=== PATIENT | female | born 1970 | race Caucasian/White ===

== ENCOUNTER 2017-08-13 20:58 | Emergency (ER) | payer BC ==
[~2017-08-13] VITALS: Ht 170.2 cm; Wt 108.8 kg
[2017-08-13 22:13] LABS: HEMATOCRIT 42.2 % (36.0-46.0); HEMOGLOBIN 14.3 G/DL (11.9-15.5); MCH 31.2 PG (29.0-34.0); MCHC 33.9 G/DL (30.0-36.0); MCV 92.1 FL (83-99); PLATELET COUNT 295 K/uL (156-360); RBC DIS.WIDTH-CV 12.9 % (11.8-14.6); RBC DIS.WIDTH-SD 43.1 % (39-53); RED BLOOD COUNT 4.58 M/uL (3.80-5.20); WHITE BLOOD COUNT 9.2 K/uL (4.1-10.2)
[2017-08-13 22:28] LABS: ALBUMIN 4.2 g/dL (3.2-4.8); CHLORIDE 108 mEq/L (99-109); POTASSIUM 4.2 mEq/L (3.7-5.4); SODIUM 144 mEq/L (136-147)
[2017-08-13 22:30] LABS: GLUCOSE 107 mg/dL (70-99); TOTAL PROTEIN 7.1 g/dL (6.4-8.3)
[2017-08-13 22:32] LABS: TOTAL BILIRUBIN 0.3 mg/dL (0.0-1.0)
[2017-08-13 22:34] LABS: ALKALINE PHOSPHATASE 90 IU/L (3-129); CREATININE 0.8 mg/dL (0.6-1.3); GFR ESTIMATE (CALCULATED) > 59 mL/min/
[2017-08-13 22:35] LABS: TROP-I INTERPRETATION NEGATIVE; TROPONIN-I < 0.01 ng/mL (0.0-0.30); UREA NITROGEN (BUN) 12 mg/dL (9-23)
[2017-08-13 22:36] LABS: AST (GOT) 20 IU/L (2-34); QUANTITATIVE HCG < 4.0 MIU/ML
[2017-08-13 22:37] LABS: ALT (GPT) 24 IU/L (3-49); LIPASE 13 U/L (1.0-51.0)
[2017-08-14] MEDS ORDERED: WELLBUTRIN XL300 MG PO (00:23)
[2017-08-14] MEDS ORDERED: CARDIZEM30 MG PO (00:23)
[2017-08-14] MEDS ORDERED: FLEXERIL5 MG PO (00:23)
[2017-08-14] MEDS ORDERED: ADULT ASPIRIN81 MG PO (00:24)
[2017-08-14] MEDS ORDERED: OMEPRAZOLE40 M1 PO (00:24)
[2017-08-14] MEDS ORDERED: FISH OIL 1,0001 EAC7 PO (00:24)
[2017-08-14] MEDS ORDERED: [UNRECOGNIZED DRUG - OTHER] PO (00:24)
[2017-08-14] MEDS ORDERED: B COMPLEX #11 EACH PO (00:24)
[2017-08-14 03:17] VITALS: BP 148/73
[2017-08-14 05:10] LABS: HEMATOCRIT 44.2 % (36.0-46.0); HEMOGLOBIN 14.7 G/DL (11.9-15.5); MCH 30.2 PG (29.0-34.0); MCHC 33.3 G/DL (30.0-36.0); MCV 90.8 FL (83-99); PLATELET COUNT 309 K/uL (156-360); RBC DIS.WIDTH-CV 12.7 % (11.8-14.6); RBC DIS.WIDTH-SD 41.8 % (39-53); RED BLOOD COUNT 4.87 M/uL (3.80-5.20); WHITE BLOOD COUNT 11.1 K/uL (4.1-10.2)
[2017-08-14 05:24] LABS: TROP-I INTERPRETATION NEGATIVE; TROPONIN-I < 0.01 ng/mL (0.0-0.30)
[2017-08-14 05:31] LABS: ALBUMIN 4.2 G/DL (3.2-4.8); ALKALINE PHOSPHATASE 71 IU/L (3-129); ALT (GPT) 23 IU/L (3-49); AST (GOT) 19 IU/L (2-34); CHLORIDE 106 MEQ/L (99-109); CREATININE 0.7 MG/DL (0.6-1.3); GFR ESTIMATE (CALCULATED) > 59 mL/min/; POTASSIUM 3.7 MEQ/L (3.7-5.4); SODIUM 140 MEQ/L (136-147); TOTAL BILIRUBIN 0.3 MG/DL (0.0-1.0); TOTAL PROTEIN 7.3 G/DL (6.4-8.3); UREA NITROGEN (BUN) 11 mg/dL (9-23)
[2017-08-14 05:34] LABS: GLUCOSE 173 mg/dL (70-99)
[2017-08-14 07:37] VITALS: BP 104/55
[2017-08-14 10:20] LABS: TROP-I INTERPRETATION NEGATIVE; TROPONIN-I < 0.01 ng/mL (0.0-0.30)
[2017-08-14 12:02] VITALS: BP 100/51
[2017-08-14 16:10] VITALS: BP 119/65
== END 2017-08-14 16:55 | disposition home or self-care (01) ==
LOC: EME 20:58 → EDOF 08-14 01:46 → ENRESERV 08-14 01:47 → 4SOUTH 08-14 02:55
PROVIDERS: Internal Medicine; Nurse Practitioner Family
DX: R07.89 Other chest pain (principal); K21.0 Gastro-esophageal reflux disease with esophagitis; R91.1 Solitary pulmonary nodule; K22.4 Dyskinesia of esophagus; R51 Headache; I10 Essential (primary) hypertension; E78.5 Hyperlipidemia, unspecified; E66.9 Obesity, unspecified; F32.9 Major depressive disorder, single episode, unspecified; Z82.49 Family history of ischemic heart disease and other diseases of the circulatory system; Z79.82 Long term (current) use of aspirin
CPT/HCPCS: 71046; 71275; 80053; 83690; 84484; 84702; 85027; 85379; 93005; 99281; 99285; G0378; J1100; J1200; J1644; J1885; J2405; S0028